=== PATIENT | female | born 1980 ===

== ENCOUNTER 2016-08-06 10:23 | Emergency (ER) | payer MEDICAID ==
[2016-08-06 11:25] LABS: HEMATOCRIT 37.3 % (36.0-48.0); HEMOGLOBIN 12.8 g/dL (12-16); LYMPHOCYTES 16.2 % (15-50); MCH 29.6 pg (26.0-34.0); MCHC 34.3 g/dL (31.0-37.0); MCV 86.3 fL (80.0-100.0); MEAN PLATELET VOLUME 9.7 fL (7.4-10.4); NEUTROPHILS 77.7 % (40-80); PLATELET COUNT 224 10x3/uL (130-400); RBC 4.32 10x6/uL (4.00-5.40); WBC 8.7 10x3/uL (4.8-10.8)
[2016-08-06 11:32] LABS: HCG SERUM POSITIVE (NEGATIVE)
== END 2016-08-06 15:03 | disposition home or self-care (01) ==
LOC: D.ER 10:23
PROVIDERS: Emergency Medicine
DX: O20.0 Threatened abortion (principal); Z3A.00 Weeks of gestation of pregnancy not specified